=== PATIENT | male | born 1985 | race African-American/Black ===

== ENCOUNTER 2017-10-06 07:22 | Emergency (ER) | payer SELFPAY ==
[~2017-10-06] VITALS: Ht 170.2 cm; Wt 83.1 kg
[~2017-10-06 07:22] MED LIST: Carafate PO; FLAGYL500 MG PO; HYDROCODON-ACE1 EAC7 PO; LEVOFLOXACIN750 MG PO; NEXIUM40 MG PO; NO HOME MEDS; PEPCID20 MG PO; PERCOCET 5/31 TABLET PO; Percocet 5/325,Endoc PO; Protonix PO; TYLENOL WITH C1 EACH PO; ULTRAM50 MG PO; ZANTAC150 MG PO; ZANTAC300 MG PO; ZOFRAN ODT4 MG PO; ZOFRAN ODT8 MG PO; ZOFRAN4 MG PO; Zofran PO
[2017-10-06 08:26] LABS: EOSINOPHIL (%) 0.9 % (0-5); EOSINOPHIL COUNT 0.1 K/uL (0-0.3); HEMATOCRIT 41.1 % (38.0-50.0); IMMATURE GRANULOCYTE (%) 0.4 % (0.0-0.7); INSTRUMENT ABS NEUTROPHIL CT 4.8 K/uL; LYMPHOCYTE COUNT 1.6 K/uL (1.0-2.8); MCV 85.6 FL (86-99); MEAN PLAT.VOLUME 9.1 uM^3 (9.0-12.4); MONOCYTE (%) 5.7 % (3-12); MONOCYTE COUNT 0.4 K/uL (0-0.8); NEUTROPHIL (%) 69.7 % (45-76); NEUTROPHIL COUNT 4.8 K/uL (1.8-6.4); PLATELET COUNT 309 K/uL (156-360); RBC DIS.WIDTH-SD 40.5 % (39-53); WHITE BLOOD COUNT 6.8 K/uL (4.1-10.2)
[2017-10-06 08:43] LABS: CHLORIDE 102 mEq/L (99-109); POTASSIUM 3.8 mEq/L (3.7-5.4); SODIUM 141 mEq/L (136-147)
[2017-10-06 08:46] LABS: GLUCOSE 112 mg/dL (70-99)
[2017-10-06 08:47] LABS: ANION GAP 11 MEQ/L (2-14); TROP-I INTERPRETATION NEGATIVE; TROPONIN-I < 0.01 ng/mL (0.0-0.30)
[2017-10-06 08:48] LABS: TOTAL BILIRUBIN 0.2 mg/dL (0.0-1.0)
[2017-10-06 08:49] LABS: ALKALINE PHOSPHATASE 58 IU/L (3-129); GFR ESTIMATE (CALCULATED) > 59 mL/min/
[2017-10-06 08:50] LABS: UREA NITROGEN (BUN) 13 mg/dL (9-23)
[2017-10-06 08:53] LABS: LIPASE 31 U/L (1.0-51.0)
[2017-10-06 11:29] LABS: ADD MIUA? YES; BILIRUBIN NEGATIVE; BLOOD NEGATIVE; COLOR YELLOW ((YELLOW)); GLUCOSE (STRIP) NEGATIVE; KETONES NEGATIVE; LEUKOCYTES SMALL; NITRITE NEGATIVE; PROTEIN (STRIP) 30; SPECIFIC GRAVITY 1.025 (1.000-1.030)
[2017-10-06 11:41] LABS: BACTERIA NONE SEEN /HPF; EPITHELIAL CELLS RARE /HPF; HYALINE CASTS TNTC /LPF; MUCUS 2+ /LPF; RED BLOOD CELLS 0-5 /HPF (0-5); UCUL ADDED? YES; WHITE BLOOD CELLS 15-20 /HPF (0-5)
[2017-10-06 11:42] LABS: AMPHETAMINE NEGATIVE (500 ng/mL); BARBITURATES NEGATIVE (200 ng/mL); BENZODIAZEPINES NEGATIVE (150 ng/mL); COCAINE NEGATIVE (150 ng/mL); INTERNAL CONTROLS VALID? YES; METHADONE NEGATIVE (200 ng/mL); METHAMPHETAMINE NEGATIVE (500 ng/mL); OPIATES (MORPHINE) PRESUMPTIVE POSITIVE (100 ng/mL); OXYCODONE PRESUMPTIVE POSITIVE (100 ng/mL); PHENCYCLIDINE NEGATIVE (25 ng/mL); PROPOXYPHENE NEGATIVE (300 ng/mL); THC CANNABINOIDS PRESUMPTIVE POSITIVE (50 ng/mL); TRICYCLIC ANTIDEPRESSANTS NEGATIVE (300 ng/mL)
[2017-10-06 11:43] LABS: ADD MEDTOX COMMENT Y
[2017-10-06] MEDS ORDERED: REGLAN10 MG PO (12:00)
[2017-10-06 12:02] VITALS: BP 118/85
== END 2017-10-06 12:02 | disposition home or self-care (01) ==
LOC: EME 07:22
PROVIDERS: Emergency Medicine
DX: R11.2 Nausea with vomiting, unspecified (principal); F12.10 Cannabis abuse, uncomplicated; R07.9 Chest pain, unspecified; R10.11 Right upper quadrant pain; J45.909 Unspecified asthma, uncomplicated; R19.7 Diarrhea, unspecified; F17.200 Nicotine dependence, unspecified, uncomplicated; Z91.013 Allergy to seafood; Z88.5 Allergy status to narcotic agent; Z88.6 Allergy status to analgesic agent
CPT/HCPCS: 71020; 76705; 80053; 81003; 83690; 84484; 84999; 85025; 87086; 93005; 99281; 99285; J2405; J2765; J7040

== ENCOUNTER 2017-12-15 12:17 | Emergency (ER) | payer SELFPAY ==
[~2017-12-15] VITALS: Ht 170.2 cm; Wt 81.8 kg
[~2017-12-15 12:17] MED LIST changes: +REGLAN10 MG PO
[2017-12-15 13:09] LABS: BASOPHIL (%) 0.4 % (0-1); EOSINOPHIL (%) 0.9 % (0-5); EOSINOPHIL COUNT 0.1 K/uL (0-0.3); HEMATOCRIT 37.9 % (38.0-50.0); HEMOGLOBIN 13.5 G/DL (12.5-16.6); IMMATURE GRANULOCYTE (%) 0.4 % (0.0-0.7); LYMPHOCYTE (%) 21.8 % (15-42); LYMPHOCYTE COUNT 1.5 K/uL (1.0-2.8); MCH 30.5 PG (29.0-34.0); MCHC 35.6 G/DL (30.0-36.0); MCV 85.7 FL (86-99); MONOCYTE (%) 4.7 % (3-12); MONOCYTE COUNT 0.3 K/uL (0-0.8); NEUTROPHIL (%) 71.8 % (45-76); NEUTROPHIL COUNT 4.9 K/uL (1.8-6.4); PLATELET COUNT 294 K/uL (156-360); RBC DIS.WIDTH-CV 12.8 % (11.8-14.6); RBC DIS.WIDTH-SD 39.9 % (39-53); RED BLOOD COUNT 4.42 M/uL (4.00-5.50); WHITE BLOOD COUNT 6.9 K/uL (4.1-10.2)
[2017-12-15 13:16] LABS: CHLORIDE 104 mEq/L (99-109); SODIUM 139 mEq/L (136-147)
[2017-12-15 13:17] LABS: GLUCOSE 121 mg/dL (70-99)
[2017-12-15 13:21] LABS: CREATININE 0.9 mg/dL (0.6-1.3); GFR ESTIMATE (CALCULATED) > 59 mL/min/ (58.99-99999)
[2017-12-15 13:22] LABS: UREA NITROGEN (BUN) 8 mg/dL (9-23)
[2017-12-15] MEDS ORDERED: ZOFRAN4 MG PO (15:16)
[2017-12-15] MEDS ORDERED: BENTYL20 MG PO (15:16)
[2017-12-15 15:41] VITALS: BP 132/83
== END 2017-12-15 15:41 | disposition home or self-care (01) ==
LOC: EME 12:17
PROVIDERS: Emergency Medicine
DX: R11.2 Nausea with vomiting, unspecified (principal); R10.9 Unspecified abdominal pain; I49.8 Other specified cardiac arrhythmias; J45.909 Unspecified asthma, uncomplicated; F17.200 Nicotine dependence, unspecified, uncomplicated; Z88.6 Allergy status to analgesic agent; Z88.5 Allergy status to narcotic agent
CPT/HCPCS: 71045; 74176; 80048; 85025; 87502; 93005; 99281; 99284; J1885; J2405; J2765; J3010; J7030

== ENCOUNTER 2018-03-31 18:06 | Emergency (ER) | payer OTHER ==
[~2018-03-31] VITALS: Ht 170.2 cm; Wt 80.1 kg
[~2018-03-31 18:06] MED LIST changes: +BENTYL20 MG PO
[2018-03-31 19:22] LABS: HEMATOCRIT 42.1 % (38.0-50.0); HEMOGLOBIN 15.1 G/DL (12.5-16.6); MCHC 35.9 G/DL (30.0-36.0); MCV 83.7 FL (86-99); PLATELET COUNT 310 K/uL (156-360); RBC DIS.WIDTH-CV 12.7 % (11.8-14.6); RBC DIS.WIDTH-SD 38.3 % (39-53); RED BLOOD COUNT 5.03 M/uL (4.00-5.50); WHITE BLOOD COUNT 8.3 K/uL (4.1-10.2)
[2018-03-31 19:44] LABS: CHLORIDE 102 mEq/L (99-109); SODIUM 139 mEq/L (136-147)
[2018-03-31 19:46] LABS: GLUCOSE 128 mg/dL (70-99); TOTAL PROTEIN 8.9 g/dL (6.4-8.3)
[2018-03-31 19:48] LABS: TOTAL BILIRUBIN 0.6 mg/dL (0.0-1.0)
[2018-03-31 19:49] LABS: ALKALINE PHOSPHATASE 68 IU/L (3-129)
[2018-03-31 19:50] LABS: CREATININE 0.9 mg/dL (0.6-1.3); GFR ESTIMATE (CALCULATED) > 59 mL/min/ (58.99-99999)
[2018-03-31 19:51] LABS: AST (GOT) 22 IU/L (2-34); UREA NITROGEN (BUN) 15 mg/dL (9-23)
[2018-03-31 19:53] LABS: ALT (GPT) 22 IU/L (3-49)
[2018-03-31 20:37] LABS: APPEARANCE CLEAR ((CLEAR)); BILIRUBIN NEGATIVE; BLOOD NEGATIVE; COLOR YELLOW ((YELLOW)); GLUCOSE (STRIP) NEGATIVE; KETONES 80; LEUKOCYTES SMALL; NITRITE NEGATIVE; PROTEIN (STRIP) 30; SPECIFIC GRAVITY 1.027 (1.000-1.030); UROBILINOGEN 0.2 MG/DL (0.2-1.0)
[2018-03-31 20:47] LABS: BACTERIA RARE /HPF; EPITHELIAL CELLS RARE /HPF; MUCUS 3+ /LPF; RED BLOOD CELLS 0-5 /HPF (0-5); UCUL ADDED? YES
[2018-03-31 20:48] LABS: AMPHETAMINE NEGATIVE (500 ng/mL); BARBITURATES NEGATIVE (200 ng/mL); BENZODIAZEPINES PRESUMPTIVE POSITIVE (150 ng/mL); BUPRENORPHINE PRESUMPTIVE POSITIVE (10 ng/mL); COCAINE NEGATIVE (150 ng/mL); METHADONE NEGATIVE (200 ng/mL); METHAMPHETAMINE NEGATIVE (500 ng/mL); OPIATES (MORPHINE) PRESUMPTIVE POSITIVE (100 ng/mL); OXYCODONE PRESUMPTIVE POSITIVE (100 ng/mL); PHENCYCLIDINE NEGATIVE (25 ng/mL); PROPOXYPHENE NEGATIVE (300 ng/mL); THC CANNABINOIDS PRESUMPTIVE POSITIVE (50 ng/mL); TRICYCLIC ANTIDEPRESSANTS NEGATIVE (300 ng/mL)
[2018-03-31] MEDS ORDERED: CATAPRES0.1 MG PO (21:25)
[2018-03-31] MEDS ORDERED: TRAZODONE HCL50 MG PO (21:25)
[2018-03-31] MEDS ORDERED: PHENERGAN12.5 MG PR (21:29)
[2018-03-31 21:42] VITALS: BP 114/54
== END 2018-03-31 21:43 | disposition home or self-care (01) ==
LOC: EME 18:06
PROVIDERS: Physician Assistant
DX: R11.10 Vomiting, unspecified (principal); F12.10 Cannabis abuse, uncomplicated; F11.10 Opioid abuse, uncomplicated; F13.10 Sedative, hypnotic or anxiolytic abuse, uncomplicated; J45.909 Unspecified asthma, uncomplicated; Z88.6 Allergy status to analgesic agent; F17.200 Nicotine dependence, unspecified, uncomplicated
CPT/HCPCS: 74018; 80053; 81003; 84999; 85027; 87086; 99281; 99285; J1630; J1885; J2405; J2765; J7030

== ENCOUNTER 2018-04-02 18:59 | Emergency (ER) | payer OTHER ==
[~2018-04-02] VITALS: Ht 170.2 cm; Wt 77.2 kg
[~2018-04-02 18:59] MED LIST changes: +CATAPRES0.1 MG PO; +PHENERGAN12.5 MG PR; +TRAZODONE HCL50 MG PO
[2018-04-02 19:46] LABS: HEMATOCRIT 37.1 % (38.0-50.0); HEMOGLOBIN 13.4 G/DL (12.5-16.6); MCH 30.2 PG (29.0-34.0); MCHC 36.1 G/DL (30.0-36.0); MCV 83.7 FL (86-99); PLATELET COUNT 302 K/uL (156-360); RBC DIS.WIDTH-CV 12.6 % (11.8-14.6); RBC DIS.WIDTH-SD 38.6 % (39-53); RED BLOOD COUNT 4.43 M/uL (4.00-5.50); WHITE BLOOD COUNT 7.8 K/uL (4.1-10.2)
[2018-04-02 19:55] LABS: ALBUMIN 4.6 g/dL (3.2-4.8); CHLORIDE 102 mEq/L (99-109); SODIUM 141 mEq/L (136-147)
[2018-04-02 19:57] LABS: GLUCOSE 114 mg/dL (70-99); TOTAL PROTEIN 8.3 g/dL (6.4-8.3)
[2018-04-02 19:59] LABS: TOTAL BILIRUBIN 0.6 mg/dL (0.0-1.0)
[2018-04-02 20:01] LABS: ALKALINE PHOSPHATASE 59 IU/L (3-129); GFR ESTIMATE (CALCULATED) > 59 mL/min/ (58.99-99999)
[2018-04-02 20:02] LABS: UREA NITROGEN (BUN) 16 mg/dL (9-23)
[2018-04-02 20:03] LABS: AST (GOT) 14 IU/L (2-34)
[2018-04-02 20:04] LABS: ALT (GPT) 16 IU/L (3-49)
[2018-04-02] MEDS ORDERED: ZOFRAN ODT4 MG PO (20:38)
[2018-04-02 20:50] LABS: AMPHETAMINE NEGATIVE (500 ng/mL); BENZODIAZEPINES NEGATIVE (150 ng/mL); COCAINE NEGATIVE (150 ng/mL); METHAMPHETAMINE NEGATIVE (500 ng/mL); OPIATES (MORPHINE) PRESUMPTIVE POSITIVE (100 ng/mL); PHENCYCLIDINE NEGATIVE (25 ng/mL); THC CANNABINOIDS PRESUMPTIVE POSITIVE (50 ng/mL)
[2018-04-02 20:51] LABS: BARBITURATES NEGATIVE (200 ng/mL); BUPRENORPHINE NEGATIVE (10 ng/mL); METHADONE NEGATIVE (200 ng/mL); OXYCODONE PRESUMPTIVE POSITIVE (100 ng/mL); PROPOXYPHENE NEGATIVE (300 ng/mL); TRICYCLIC ANTIDEPRESSANTS NEGATIVE (300 ng/mL)
[2018-04-02 20:55] LABS: APPEARANCE CLEAR ((CLEAR)); BILIRUBIN NEGATIVE; BLOOD NEGATIVE; COLOR YELLOW ((YELLOW)); GLUCOSE (STRIP) 50; KETONES 20; LEUKOCYTES TRACE; NITRITE NEGATIVE; PROTEIN (STRIP) 100; SPECIFIC GRAVITY 1.027 (1.000-1.030)
[2018-04-02 21:01] LABS: BACTERIA NONE SEEN /HPF; EPITHELIAL CELLS RARE /HPF; MUCUS TRACE /LPF; RED BLOOD CELLS 0-5 /HPF (0-5); UCUL ADDED? YES
[2018-04-02 21:11] VITALS: BP 127/67
== END 2018-04-02 21:12 | disposition home or self-care (01) ==
LOC: EME 18:59 → EXP 18:59
PROVIDERS: Physician Assistant Medical
DX: R11.2 Nausea with vomiting, unspecified (principal); T40.7X5A Adverse effect of cannabis (derivatives), initial encounter; F12.90 Cannabis use, unspecified, uncomplicated; J45.909 Unspecified asthma, uncomplicated; Z88.6 Allergy status to analgesic agent; F17.200 Nicotine dependence, unspecified, uncomplicated
CPT/HCPCS: 80053; 81003; 84999; 85027; 87086; 99281; 99284

== ENCOUNTER 2018-06-27 22:43 | Observation (INO) | payer OTHER ==
[~2018-06-27] VITALS: Ht 170.2 cm; Wt 89.8 kg
[2018-06-27 23:20] LABS: HEMATOCRIT 40.1 % (38.0-50.0); HEMOGLOBIN 14.1 G/DL (12.5-16.6); MCH 29.1 PG (29.0-34.0); MCHC 35.2 G/DL (30.0-36.0); MCV 82.7 FL (86-99); PLATELET COUNT 326 K/uL (156-360); RBC DIS.WIDTH-CV 12.8 % (11.8-14.6); RED BLOOD COUNT 4.85 M/uL (4.00-5.50); WHITE BLOOD COUNT 10.3 K/uL (4.1-10.2)
[2018-06-27 23:34] LABS: ALBUMIN 4.7 g/dL (3.2-4.8); CHLORIDE 101 mEq/L (99-109); SODIUM 140 mEq/L (136-147)
[2018-06-27 23:37] LABS: GLUCOSE 132 mg/dL (70-99); TOTAL PROTEIN 8.6 g/dL (6.4-8.3)
[2018-06-27 23:39] LABS: TOTAL BILIRUBIN 0.5 mg/dL (0.0-1.0)
[2018-06-27 23:40] LABS: ALKALINE PHOSPHATASE 66 IU/L (3-129); CREATININE 0.9 mg/dL (0.6-1.3); GFR ESTIMATE (CALCULATED) > 59 mL/min/ (58.99-99999)
[2018-06-27 23:41] LABS: UREA NITROGEN (BUN) 13 mg/dL (9-23)
[2018-06-27 23:42] LABS: AST (GOT) 21 IU/L (2-34)
[2018-06-27 23:43] LABS: ALT (GPT) 27 IU/L (3-49)
[2018-06-28 00:32] LABS: APPEARANCE CLEAR ((CLEAR)); BILIRUBIN NEGATIVE; BLOOD NEGATIVE; COLOR YELLOW ((YELLOW)); GLUCOSE (STRIP) NEGATIVE; KETONES 5; LEUKOCYTES TRACE; NITRITE NEGATIVE; PROTEIN (STRIP) 30; SPECIFIC GRAVITY 1.024 (1.000-1.030); UROBILINOGEN 0.2 MG/DL (0.2-1.0)
[2018-06-28 00:54] LABS: LIPASE 6 U/L (1.0-51.0)
[2018-06-28 00:54] LABS: BACTERIA NONE SEEN /HPF; EPITHELIAL CELLS RARE /HPF; MUCUS TRACE /LPF; RED BLOOD CELLS 0-5 /HPF (0-5); UCUL ADDED? YES
[2018-06-28 07:15] LABS: ALBUMIN 3.9 G/DL (3.2-4.8); ALKALINE PHOSPHATASE 47 IU/L (3-129); ALT (GPT) 20 IU/L (3-49); AST (GOT) 19 IU/L (2-34); LIPASE 8 U/L (1.0-51.0); TOTAL BILIRUBIN 0.5 MG/DL (0.0-1.0); TOTAL PROTEIN 6.5 G/DL (6.4-8.3)
[2018-06-28 07:52] VITALS: BP 130/74
[2018-06-28 11:35] VITALS: BP 128/68
[2018-06-28] MEDS ORDERED: ZOFRAN4 MG PO (12:47)
== END 2018-06-28 13:59 | disposition home or self-care (01) ==
LOC: EME 22:43 → EDOF 06-28 05:22 → ENRESERV 06-28 05:37 → 4SOUTH 06-28 07:16
PROVIDERS: Hospitalist
DX: R11.2 Nausea with vomiting, unspecified (principal); F11.288 Opioid dependence with other opioid-induced disorder; T40.7X5A Adverse effect of cannabis (derivatives), initial encounter; F17.200 Nicotine dependence, unspecified, uncomplicated; J45.909 Unspecified asthma, uncomplicated; Z83.3 Family history of diabetes mellitus; Z88.5 Allergy status to narcotic agent; Z91.013 Allergy to seafood
CPT/HCPCS: 74176; 80053; 80076; 81003; 83605; 83690; 85027; 87086; 99281; 99285; C9113; G0378; J0500; J1644; J2270; J2405; J2765; J7030; S0028